=== PATIENT | male | born 1990 | race Caucasian/White ===

== ENCOUNTER 2017-09-29 05:22 | Emergency (ER) | payer OTHER ==
[2017-09-29] MEDS ORDERED: ONDANSETRON HCL IV 4 MG/2 ML VIAL IVP ONE (05:39)
[2017-09-29] MEDS ORDERED: 0.9 % SODIUM CHLORIDE 1,000 ML BAG IV ONE (05:43)
[2017-09-29] MEDS ORDERED: 0.9 % SODIUM CHLORIDE 1000ML 1,000 ML IV ONE (05:43)
[2017-09-29] MEDS ORDERED: HYDROMORPHONE HCL 2 MG/ML VIAL IVP ONE ×2 (05:51→06:38)
[2017-09-29 05:52] LABS: BASO % 0.5 % (0-6); EOS % 3.7 % (0-6); HEMATOCRIT 47.6 % (42.0-52.0); HEMOGLOBIN 17.1 gm/dl (14.0-18.0); MEAN CORPUSCULAR HEMOGLOBIN 30.2 pg (27-33); MEAN CORPUSCULAR HGB CONC 35.9 g/dl (32-36); MEAN PLATELET VOLUME 11.2 fl (7.4-10.4); MONO % 7.8 % (0-9); PLATELET COUNT 193 K/uL (130-400); RED BLOOD COUNT 5.67 M/uL (4.40-5.70); RED CELL DISTRIBUTION WIDTH 12.4 % (11.5-14.5); WHITE BLOOD COUNT W/O DIFF 7.7 K/uL (4.2-12.2)
--- NOTE | 2017-09-29 05:53 | Emergency Department Record ---
History of Present Illness - General Chief Complaint: Abdominal Pain Stated Complaint: ABDOMINAL PAIN Time Seen by Provider: 09/29/17 05:41 Source: Patient Mode of Arrival: Ambulatory - History of Present Illness Initial Comments: The patient states he was fine when he went to bed. HE awakened at 0400 with upper abdominal pain and took some Pepto Bismol and Gas Ex. He had a small BM which didn't really help. Since then he has vomited a few times. Severity is 10/ 10. He states it does not radiate to his back. He has had daily BM's and doesn' t think he is constipated. He has never had abdominal surgery. Denies other complaints such as fever, cough, URI symptoms or urinary symptoms. Onset/Timin -: Hour(s) Location: Diffuse, LUQ, RUQ Migration to: No migration Severity: Moderate, Severe Severity scale (1-10): 8 Quality: Sharp Consistency: Constant, Getting worse Improves With: Nothing Worsens With: Nothing Associated Symptoms: Vomiting - Related Data Home Medications Medication Instructions Recorded Confirmed Last Taken No Home Med [NO HOME MEDS] 09/29/17 09/29/17 Unknown Allergies Allergy/AdvReac Type Severity Reaction Status Date / Time No Known Drug Allergies Allergy Verified 09/29/17 05:37 Travel Screening - Travel/Exposure Within Last 30 Days Have you traveled within the last 30 days?: No - Travel Symptoms Symptom Screening: Vomiting Review of Systems Reviewed: No additional complaints except as noted below Constitutional: Reports: As per HPI. Denies: Chills, Fever, Malaise, Night sweats, Weakness, Weight change Eyes: Reports: As per HPI. Denies: Eye discharge, Eye pain, Photophobia, Vision change ENT: Reports: As per HPI. Denies: Congestion, Dental pain, Ear pain, Epistaxis , Hearing loss, Throat pain Respiratory: Reports: As per HPI. Denies: Cough, Dyspnea, Hemoptysis, Stridor, Wheezes Cardiovascular: Reports: As per HPI. Denies: Arrhythmia, Chest pain, Dyspnea on exertion, Edema, Murmurs, Orthopnea, Palpitations, Paroxysmal nocturnal dyspnea, Rheumatic Fever, Syncope Endocrine: Reports: As per HPI. Denies: Fatigue, Heat or cold intolerance, Polydipsia, Polyuria Gastrointestinal: Reports: As per HPI. Denies: Abdominal pain, Constipation, Diarrhea, Hematemesis, Hematochezia, Melena, Nausea, Vomiting Genitourinary: Reports: As per HPI. Denies: Dysuria, Frequency, Hematuria, Incontinence, Retention, Testicular pain, Testicular mass, Urgency Musculoskeletal: Reports: As per HPI. Denies: Arthralgia, Back pain, Gout, Joint swelling, Myalgia, Neck pain Skin: Reports: As per HPI. Denies: Bruising, Change in color, Change in hair/ nails, Lesions, Pruritus, Rash Neurological: Reports: As per HPI. Denies: Abnormal gait, Confusion, Headache, Numbness, Paresthesias, Seizure, Tingling, Tremors, Vertigo, Weakness Psychiatric: Reports: As per HPI. Denies: Anxiety, Auditory hallucinations, Depression, Homicidal thoughts, Suicidal thoughts, Visual hallucinations Hematological/Lymphatic: Reports: As per HPI. Denies: Anemia, Blood Clots, Easy bleeding, Easy bruising, Swollen glands Past Medical History - SOCIAL HISTORY Smoking Status: Never smoker Alcohol Use: Occasional Drug Use: None - RESPIRATORY Hx Respiratory Disorders: No - CARDIOVASCULAR Hx Cardio Disorders: No - NEURO Hx Neuro Disorders: No - GI Hx GI Disorders: No - Hx Genitourinary Disorders: No - ENDOCRINE Hx Endocrine Disorders: No - MUSCULOSKELETAL Hx Musculoskeletal Disorders: No - PSYCH Hx Psych Problems: No - HEMATOLOGY/ONCOLOGY Hx Hematology/Oncology Disorders: No Family Medical History Any Significant Family History?: No Physical Exam - General General Appearance: Alert, Oriented x3, Cooperative, Severe distress - Head Head exam: Normal inspection - Eye Eye exam: Normal appearance, PERRL, EOMI. negative: Conjunctival injection, Nystagmus, Scleral icterus Pupils: Normal accommodation - ENT ENT exam: Normal exam, Mucous membranes moist, Normal external ear exam, Normal orophraynx, TM's normal bilaterally Ear exam: Normal external inspection. negative: External canal tenderness Nasal Exam: Normal inspection. negative: Discharge, Sinus tenderness Mouth exam: Normal external inspection, Tongue normal Teeth exam: Normal inspection. negative: Dental caries Throat exam: Normal inspection. negative: Tonsillar erythema, Tonsillomegaly, Tonsillar exudate - Neck Neck exam: Normal inspection, Full ROM. negative: Lymphadenopathy, Meningismus , Tenderness - Respiratory Respiratory exam: Normal lung sounds bilaterally. negative: Accessory muscle use, Prolonged expiratory, Respiratory distress, Rhonchi, Stridor, Wheezes - Cardiovascular Cardiovascular Exam: Regular rate, Normal rhythm, Normal heart sounds - GI/Abdominal GI/Abdominal exam: Soft, Normal bowel sounds, Guarding (diffuse), Tenderness ( all quadrants including McBurney's pont RLQ with epigastric most tender) - Rectal Rectal exam: Deferred - exam: Deferred - Extremities Extremities exam: Normal inspection, Full ROM, Normal capillary refill. negative: Tenderness - Back Back exam: Reports: Normal inspection, Full ROM. Denies: CVA tenderness (R), CVA tenderness (L), Muscle spasm, Rash noted, Tenderness - Neurological Neurological exam: Alert, Normal gait, Oriented X3, Reflexes normal - Psychiatric Psychiatric exam: Normal affect, Normal mood - Skin Skin exam: Dry, Intact, Normal color, Warm, Other (clammy resolving). negative : Rash Course Vital Signs 09/29/17 05:27 Pulse Rate [ 79 Pulse Ox Probe] Respiratory 28 H Rate Blood Pressure 142/112 [Left Arm] Pulse Ox 98 - Reevaluation(s) Reevaluation #1: The patient returned from CT scan with pain level decreased to 8/10 and nausea, vomiting resolved. Diaphoresis nearly resolved. Blood work all normal. UA being sent currently. 09/29/17 06:39 Reevaluation #2: Care turned over to Dr Rendon at 7 a.m. shift change. 09/29/17 06:53 Reevaluation #3: Disposition per Dr. Rendon to [facility] for cholecystitis. 09/30/17 03:23 Medical Decision Making - Management Options MDM Management: Additional Work-up Planned (e.g. ADM/Transfer/OP Study) - Data Complexity MDM Data: Labs Ordered and/or Reviewed, X-Ray Ordered and/or Reviewed - Lab Data Result diagrams: 09/29/17 05:30 09/29/17 05:30 Disposition Disposition: Transfer Clinical Impression: Abdominal pain in male, Acute cholecystitis Nausea and vomiting Qualifiers: Vomiting type: unspecified Vomiting Intractability: non-intractable Qualified Code(s): R11.2 - Nausea with vomiting, unspecified Disposition: Acute Care Hospital Transfer Transfer To: [facility] Reason For Transfer: Surgery for cholecystitis Accepting Physician: see other chart Time Discussed w/Accepting Physician: 20:00 Condition: (1) Good Additional Instructions: Go directly to the [facility] ED in [place] DO NOT EAT OR DRINK prior to arrival Forms: Patient Portal Access Quality - Quality Measures Quality Measures: N/A - Blood Pressure Screening Does Patient Have Any of the Following: No Blood Pressure Classification: Pre-Hypertensive BP Reading Systolic Measurement: 143 Diastolic Measurement: 83 Screening for High Blood Pressure: < Pre-Hypertensive BP, F/U Documented > [ G8950] Pre-Hypertensive Follow-up Interventions: Follow-up with rescreen every year.
[2017-09-29 06:07] LABS: TOTAL PROTEIN 7.6 g/dL (6.6-8.7)
[2017-09-29 06:11] LABS: ALBUMIN 4.8 g/dL (4.0-5.0); ALT/SGPT 32 U/L (<41); AST/SGOT 25 U/L (10.0-50.0)
[2017-09-29 06:12] LABS: ALKALINE PHOSPHATASE 82 U/L (40-129); LIPASE 28 U/L (13-60)
[2017-09-29 06:13] LABS: BILIRUBIN,DIRECT < 0.2 mg/dL (0-0.3)
[2017-09-29 06:45] LABS: URINE APPEARANCE CLEAR; URINE BILIRUBIN NEGATIVE (NEGATIVE); URINE BLOOD NEGATIVE (NEGATIVE); URINE COLOR YELLOW; URINE GLUCOSE (UA) NEGATIVE (NEGATIVE); URINE KETONE NEGATIVE (NEGATIVE); URINE LEUKOCYTE ESTERASE NEGATIVE (NEGATIVE); URINE NITRITE NEGATIVE (NEGATIVE); URINE PROTEIN NEGATIVE (NEGATIVE); URINE UROBILINOGEN 0.2 E.U./dL (0.20 - 1.00)
--- NOTE | 2017-09-29 07:08 | Emergency Department Record ---
History of Present Illness - General Chief Complaint: Abdominal Pain Stated Complaint: ABDOMINAL PAIN Time Seen by Provider: 09/29/17 05:41 Source: Patient Mode of Arrival: Ambulatory - History of Present Illness Initial Comments: 27 yo male presents with abdominal pain that started at 0400. The patient states the pain is in the upper abdomen only. He vomited a few times after taking peptobismol. No blood in the vomit. His last bowel movement was yesterday and was normal. No fever. The patient was seen by Dr Grimaldo. The case was signed out at [address] scan pending. Onset/Timin -: Hour(s) Location: Diffuse, LUQ, RUQ Migration to: No migration Severity: Moderate, Severe Severity scale (1-10): 8 Quality: Sharp Consistency: Constant, Getting worse Improves With: Nothing Worsens With: Nothing Associated Symptoms: Vomiting - Related Data Home Medications Medication Instructions Recorded Confirmed Last Taken No Home Med [NO HOME MEDS] 09/29/17 09/29/17 Unknown Allergies Allergy/AdvReac Type Severity Reaction Status Date / Time No Known Drug Allergies Allergy Verified 09/29/17 05:37 Travel Screening - Travel/Exposure Within Last 30 Days Have you traveled within the last 30 days?: No - Travel Symptoms Symptom Screening: Vomiting Review of Systems Constitutional: Reports: As per HPI. Denies: Chills, Fever, Malaise, Night sweats, Weakness, Weight change Eyes: Reports: As per HPI. Denies: Eye discharge, Eye pain, Photophobia, Vision change ENT: Reports: As per HPI. Denies: Congestion, Dental pain, Ear pain, Epistaxis , Hearing loss, Throat pain Respiratory: Reports: As per HPI. Denies: Cough, Dyspnea, Hemoptysis, Stridor, Wheezes Cardiovascular: Reports: As per HPI. Denies: Arrhythmia, Chest pain, Dyspnea on exertion, Edema, Murmurs, Orthopnea, Palpitations, Paroxysmal nocturnal dyspnea, Rheumatic Fever, Syncope Endocrine: Reports: As per HPI. Denies: Fatigue, Heat or cold intolerance, Polydipsia, Polyuria Gastrointestinal: Reports: As per HPI. Denies: Abdominal pain, Constipation, Diarrhea, Hematemesis, Hematochezia, Melena, Nausea, Vomiting Genitourinary: Reports: As per HPI. Denies: Dysuria, Frequency, Hematuria, Incontinence, Retention, Testicular pain, Testicular mass, Urgency Musculoskeletal: Reports: As per HPI. Denies: Arthralgia, Back pain, Gout, Joint swelling, Myalgia, Neck pain Skin: Reports: As per HPI. Denies: Bruising, Change in color, Change in hair/ nails, Lesions, Pruritus, Rash Neurological: Reports: As per HPI. Denies: Abnormal gait, Confusion, Headache, Numbness, Paresthesias, Seizure, Tingling, Tremors, Vertigo, Weakness Psychiatric: Reports: As per HPI. Denies: Anxiety, Auditory hallucinations, Depression, Homicidal thoughts, Suicidal thoughts, Visual hallucinations Hematological/Lymphatic: Reports: As per HPI. Denies: Anemia, Blood Clots, Easy bleeding, Easy bruising, Swollen glands Past Medical History - SOCIAL HISTORY Smoking Status: Never smoker Alcohol Use: Occasional Drug Use: None - RESPIRATORY Hx Respiratory Disorders: No - CARDIOVASCULAR Hx Cardio Disorders: No - NEURO Hx Neuro Disorders: No - GI Hx GI Disorders: No - Hx Genitourinary Disorders: No - ENDOCRINE Hx Endocrine Disorders: No - MUSCULOSKELETAL Hx Musculoskeletal Disorders: No - PSYCH Hx Psych Problems: No - HEMATOLOGY/ONCOLOGY Hx Hematology/Oncology Disorders: No Family Medical History Any Significant Family History?: No Course Vital Signs 09/29/17 09/29/17 05:27 06:45 Temperature 97.8 F Pulse Rate [ 79 67 Pulse Ox Probe] Respiratory 28 H 20 Rate Blood Pressure 142/112 159/107 [Left Arm] Pulse Ox 98 97 - Reevaluation(s) Reevaluation #1: The case was turned over by Dr Grimaldo. The CT scan is pending at this time. 09/29/17 07:00 09/29/17 08:09 [address] [facility] CT scan was reviewed. Multiple gallstones with slightly thickened gallbladder wall with adjacent inflammatory changes suspicious for acute cholecystitis. small hiatel hernia 09/29/17 08:20 The patient was re-examined. His pain is improved but not gone. He is distiller on palpation. I JORGE Wilkerson of general surgery. He accepts the patient for transfer. I JORGE Hanna of the ED. She accepts the transfer for evaluation and surgery consultation. 09/29/17 08:24 The patient was instructed to remain NPO. 09/29/17 08:30 The patient is stable to travel by private car He was sent with his records and CT in the transfer packet Medical Decision Making - Lab Data Result diagrams: 09/29/17 05:30 09/29/17 05:30 Lab Results 09/29/17 09/29/17 09/29/17 Range/Units 05:30 05:30 05:43 WBC 7.7 (4.2-12.2) K/uL RBC 5.67 (4.40-5.70) M/uL Hgb 17.1 (14.0-18.0) gm/dl Hct 47.6 (42.0-52.0) % MCV 84.0 (81-97) fl MCH 30.2 (27-33) pg MCHC 35.9 (32-36) g/dl RDW 12.4 (11.5-14.5) % Plt Count 193 (130-400) K/uL MPV 11.2 H (7.4-10.4) fl Gran % 57.0 (47-80) % Lymphocytes % 31.0 (16-45) % Monocytes % 7.8 (0-9) % Eosinophils % 3.7 (0-6) % Basophils % 0.5 (0-6) % Total Bilirubin 0.40 (0.2-1.0) mg/dL Direct Bilirubin < 0.2 (0-0.3) mg/dL AST 25 (10.0-50.0) U/L ALT 32 (<41) U/L Alkaline Phosphatase 82 (40-129) U/L Total Protein 7.6 (6.6-8.7) g/dL Albumin 4.8 (4.0-5.0) g/dL Lipase 28 (13-60) U/L Urine Color Yellow Urine Appearance Clear Urine pH 7.5 (5.0-8.0) Ur Specific [place] 1.010 (1.002-1.030) Urine Protein Negative (NEGATIVE) Urine Glucose (UA) Negative (NEGATIVE) Urine Ketones Negative (NEGATIVE) Urine Blood Negative (NEGATIVE) Urine Nitrite Negative (NEGATIVE) Urine Bilirubin Negative (NEGATIVE) Urine Urobilinogen 0.2 (0.20 - 1.00) E.U./dL Ur Leukocyte Esterase Negative (NEGATIVE) Disposition Disposition: Transfer Clinical Impression: Abdominal pain in male, Acute cholecystitis Nausea and vomiting Qualifiers: Vomiting type: unspecified Vomiting Intractability: non-intractable Qualified Code(s): R11.2 - Nausea with vomiting, unspecified Disposition: Acute Care Hospital [place] [facility] [place] For Transfer: acute cholecystitis Accepting Physician: [facility] Time Discussed w/Accepting Physician: 08:24 Condition: (1) Good Additional Instructions: Go directly to the [facility] ED in [place] DO NOT EAT OR DRINK prior to arrival Forms: Patient Portal Access Time of Disposition: 08:24 Quality - Quality Measures Quality Measures: N/A - Blood Pressure Screening Does Patient Have Any of the Following: No Blood Pressure Classification: Pre-Hypertensive BP Reading Systolic Measurement: 143 Diastolic Measurement: 83 Screening for High Blood Pressure: < Pre-Hypertensive BP, F/U Documented > [ G8950] Pre-Hypertensive Follow-up Interventions: Referral to alternative/primary care provider.
[2017-09-29 07:31] LABS: BLOOD UREA NITROGEN 13 mg/dL (6-20); CREATININE 1.1 mg/dL (0.7-1.2); EST GLOMERULAR FILTRATION RATE > 60 mL/min; GLUCOSE,RANDOM 126 mg/dL (74-109)
--- NOTE | 2017-10-01 08:01 | CT SCAN REPORT ---
EXAM: CT OF THE ABDOMEN AND PELVIS HISTORY: ABDOMINAL PAIN. TECHNIQUE: CT of the abdomen and pelvis was performed following intravenous contrast administration. 100 ml of Omnipaque 300 contrast was used for this examination. Comparison: None. FINDINGS: The lung bases are unremarkable. There is a small hiatal hernia. The liver and spleen are unremarkable. No pancreatic mass or inflammatory change. The bile ducts are not dilated. Multiple gallstones are seen within the gallbladder. Slight wall thickening of the gallbladder is suspected without pericholecystic fluid. The adrenal glands are unremarkable. There is bilateral renal function without renal mass or hydronephrosis. There is no aortic aneurysm. No periaortic mass or adenopathy. There are no dilated bowel loops. No pelvic mass, abscess, or adenopathy. No free air or free fluid. The appendix is visualized and is unremarkable. The osseous structures are unremarkable. IMPRESSION: 1. CHOLELITHIASIS. SLIGHT WALL THICKENING OF THE GALLBLADDER IS SUSPECTED. NO PERICHOLECYSTIC FLUID. EARLY CHOLECYSTITIS WOULD BE DIFFICULT TO EXCLUDE. 2. SMALL HIATAL HERNIA. 3. OTHERWISE UNREMARKABLE EXAMINATION. JOB NUMBER: [id number] [facility]
== END 2017-09-29 08:40 | disposition short-term general hospital (02) ==
LOC: ER 05:22
DX: K80.00 Calculus of gallbladder with acute cholecystitis without obstruction (principal); R11.2 Nausea with vomiting, unspecified
CPT/HCPCS: 74177; 80048; 80076; 81003; 83690; 85025; 96361; 96374; 96375; 96376; 99284; 99285; J2405; J7030